=== PATIENT | female | born 1960 | race African-American/Black ===

== ENCOUNTER 2019-04-15 15:05 | Outpatient (CLI) | payer BC ==
--- NOTE | 2019-04-15 16:22 | ULT ---
EXAM: PELVIC ULTRASOUND COMPLETE 04/15/19 Exam includes transabdominal imaging only. Patient refused transvaginal imaging. HISTORY: Pelvic pressure and pain with irregular bleeding. Uterus is enlarged measuring 17.3 x 8 x 12.5 cm containing multiple intrauterine fibroids. The two mo st prominent of which measure 5.3 x 4.5 x 4.7 cm and 8.2 x 6.6 x 6.1 cm. Trace fluid in the [place]. Neither right or left ovary are seen. IMPRESSION: Marked uterine enlargement with multiple uterine fibroids as above. POS: [facility]
== END 2019-04-15 15:06 | disposition home or self-care (01) ==
LOC: SCSULT 15:05
PROVIDERS: ATTEND Family Medicine
DX: N93.9 Abnormal uterine and vaginal bleeding, unspecified (principal); D25.9 Leiomyoma of uterus, unspecified; N85.2 Hypertrophy of uterus
CPT/HCPCS: 76856

== ENCOUNTER 2019-05-25 09:08 | Outpatient (CLI) | payer BC ==
--- NOTE | 2019-05-25 10:11 | MMO ---
Bilateral MAMMO Bilat Diag [facility]. CLINICAL HISTORY: Patient is 59 years old and is seen for diagnostic exam and non-bloody discharge in both breasts. The patient has no family history of breast cancer. The patient has no personal history of cancer. VIEWS: The views performed were: bilateral craniocaudal with tomosynthesis; bilateral mediolateral oblique with tomosynthesis; bilateral mediolateral with tomosynthesis; and right mediolateral. FILMS COMPARED: The present examination has been compared to a prior imaging study performed at [facility] on 05/25/2019. This study has been interpreted with the assistance of computer-aided detection. MAMMOGRAM FINDINGS: There are scattered fibroglandular densities. Benign calcifications are noted bilaterally. There are no suspicious masses, suspicious calcifications, or new areas of architectural distortion. IMPRESSION: THERE IS NO MAMMOGRAPHIC EVIDENCE OF MALIGNANCY. A ROUTINE FOLLOW-UP MAMMOGRAM IN 1 YEAR IS RECOMMENDED. THE RESULTS OF THIS EXAM WERE SENT TO THE PATIENT. ACR BI-RADS Category 2 - Benign finding MAMMOGRAPHY NOTE: 1. A negative mammogram report should not delay a biopsy if a dominant of clinically suspicious mass is present. 2. Approximately 10% to 15% of breast cancers are not detected by mammography. 3. Adenosis and dense breasts may obscure an underlying neoplasm. Reported by: SADIQ LEMUS MD Electonically Signed: [id number]
--- NOTE | 2019-05-25 10:50 | ULT ---
LEFT BREAST ULTRASOUND RIGHT BREAST ULTRASOUND: Date: 05/25/2019 HISTORY: 59-year-old female with nonhemorrhagic bilateral nipple discharge. FINDINGS: Correlation is made with mammogram from same date. There are dilated ducts in the left retroareolar breast without evidence of intraductal mass. No ductal dilatation or mass is seen in the right retroareolar breast. IMPRESSION: BI-RADS Category 2 - Benign findings. Recommend further evaluation with MRI if clinically indicated a nd if the patient develops bloody nipple discharge.
== END 2019-05-25 09:09 | disposition home or self-care (01) ==
LOC: BICMAMMO 09:08
PROVIDERS: ATTEND Family Medicine
DX: N64.52 Nipple discharge (principal)
CPT/HCPCS: 77066; G0279